=== PATIENT | female | born 1985 | race Caucasian/White ===

== ENCOUNTER 2018-10-30 17:38 | Outpatient (CLI) | payer MEDICAID ==
[~2018-10-30] VITALS: Ht 172.7 cm; Wt 114.7 kg
[~2018-10-30 17:38] MED LIST: FOLI0.4T2 PO; PREN1TAB13 PO
[2018-10-30 19:09] VITALS: Ht 172.7 cm; Wt 114.7 kg
--- NOTE | 2018-10-31 00:56 | PN ---
Triage Information Date/Time 10/31/18 Reason for visit: NST BPP EFW Weeks of Gestation 38w /Para Diabetes: gestational Diabetes management: diet controlled Hypertention: none Objective Heart Rate: 150's Heart Rate Comments CAT I Contractions: None Exam random BS 75 Results/Medications Results 24 hrs Laboratory Tests Test 10/30/18 21:01 Bedside Glucose 75 Imaging Results BPp 11/13 CASEY 19.2 EFW 3288gm Disposition: Discharge Assessment/Plan A IUP38w A1DM P RTH in 3days for antepartum test for GDM or RTH prn with routine labor instructions JASMEET ALVARADO MD Oct 31, 2018 00:56
--- NOTE | 2018-10-31 03:52 | TRIAGE ---
OB Triage Datetime Report Generated by CPN: 10/31/2018 03:52 Datetime: 10/30/2018 22:40 Labor Evaluation Frequency: 0 Monitor Mode: External Pattern: Normal: <= 5 Contractions in 10 Minutes Heart Rate FHR Baseline Rate: 135 Monitor Mode: External US Variability: Moderate 6-25 bpm Accelerations: 15X15 Decelerations: None Category: Category I Datetime: 10/30/2018 22:15 Monitor Mode: External Monitor Mode: External US Datetime: 10/30/2018 22:00 Labor Evaluation Frequency: 0 Monitor Mode: External Pattern: Normal: <= 5 Contractions in 10 Minutes Monitor Mode: External US Comments: INDETERMINATE FHR BASELINE Datetime: 10/30/2018 21:00 Labor Evaluation Frequency: 0 Monitor Mode: External Pattern: Normal: <= 5 Contractions in 10 Minutes Heart Rate FHR Baseline Rate: 150 Monitor Mode: External US Variability: Moderate 6-25 bpm Accelerations: 15X15 Decelerations: None Comments: LOSS OF CONTACT DUE TO LARGE BMI Datetime: 10/30/2018 20:11 Maternal Assessment Level of Consciousness: Keenly Alert, Responsive Respiratory Effort: Unlabored; Regular Rhythm; Equal Expansion Nausea/Vomiting: Denies Monitor Mode: External Monitor Mode: External US Pain Assessment Pain Scale: 0 Pain Presence: None/Denies Pain Type: N/A Datetime: 10/30/2018 20:00 Labor Evaluation Frequency: 0 Monitor Mode: External Pattern: Normal: <= 5 Contractions in 10 Minutes Heart Rate FHR Baseline Rate: 145 Monitor Mode: External US Variability: Moderate 6-25 bpm Accelerations: 15X15 Decelerations: None Comments: PT OFF MONITOR WHILE US BEING PERFORMED AND PT UP TO THE BATHROOM Datetime: 10/30/2018 19:52 Maternal Assessment Level of Consciousness: Keenly Alert, Responsive Headache: Denies Blurred Vision: No Respiratory Effort: Unlabored; Regular Rhythm; Equal Expansion Nausea/Vomiting: Denies RUQ Epigastric Pain: Denies Monitor Mode: External Monitor Mode: External US Pain Assessment Pain Scale: 0 Pain Presence: None/Denies Pain Type: N/A Datetime: 10/30/2018 19:26 Stage of : OB Triage Assessment Type: Triage Maternal Assessment Level of Consciousness: Keenly Alert, Responsive DTR's/Clonus: DTRs 2+; No Clonus Headache: Denies Blurred Vision: No Respiratory Effort: Unlabored; Regular Rhythm; Equal Expansion Breath Sounds, Left: Clear and Equal Breath Sounds, Right: Clear and Equal Nausea/Vomiting: Denies RUQ Epigastric Pain: Denies Lower Extremities Edema: None Upper Extremities Edema: None Facial Edema: None Temperature Route: Oral Fall Risk Assessment History of Falling: (0) No Secondary Diagnosis: (0) No Ambulatory Aid: (0) Bedrest/Nurse Assist IV Therapy: (0) No Gait: (0) Normal/Bedrest/Immobile Mental Status: (0) Oriented to Own Ability Fall Score: 0 Fall Risk Score Definition: No Risk: No action required Pain Assessment Pain Scale: 0 Pain Presence: None/Denies Pain Goal: 2 Datetime: 10/30/2018 19:25 Time of Arrival: 10/30/2018 18:36 EGA: 38.0 Arrived By: Ambulatory Arrived From: Office Chief Complaint: BREANNA DE LEÓN EFW Movement: Present Contractions: Denies/Absent Rupture of Membranes: Denies Vaginal Bleeding: None Vaginal Discharge: Denies Recent Sexual Intercouse: Denies Abdominal Trauma: Not Applicable Patient Complaints: None Time Provider Notified: 10/30/2018 22:04 Provider Notified: CHRISTIANO Initial Plan: US FOR BREANNA DE LEÓN, CHAYO
== END 2018-10-30 22:52 | disposition home or self-care (01) ==
LOC: L-D 17:38 → OBT 17:38 → L-D 18:36 → OBT 22:52
PROVIDERS: ATTEND Obstetrics & Gynecology
DX: O24.410 Gestational diabetes mellitus in pregnancy, diet controlled (principal); Z3A.38 38 weeks gestation of pregnancy
CPT/HCPCS: 76815; 76818; 82962; Z7500; G0463

== ENCOUNTER 2018-11-06 05:43 | Inpatient (IN) | payer MEDICAID ==
[~2018-11-06] VITALS: Ht 172.7 cm; Wt 114.3 kg
[2018-11-06 05:59] VITALS: BP 127/90; PULSE 68; RESP 18; Ht 172.7 cm; Wt 114.3 kg
--- NOTE | 2018-11-06 08:47 | TRIAGE ---
OB Triage Datetime Report Generated by CPN: 11/06/2018 08:46 Datetime: 11/06/2018 07:00 Labor Evaluation Frequency: x2 Monitor Mode: External Duration (sec)2399: 60-180 Quality: Mild Pattern: Normal: <= 5 Contractions in 10 Minutes Resting Tone [place]: Relaxed Heart Rate FHR Baseline Rate: 135 Monitor Mode: External US Variability: Moderate 6-25 bpm Accelerations: 15X15 Decelerations: None Category: Category I Datetime: 11/06/2018 06:30 Labor Evaluation Frequency: x3 Monitor Mode: External Duration (sec)2399: 60-90 Quality: Mild Pattern: Normal: <= 5 Contractions in 10 Minutes Resting Tone [place]: Relaxed Heart Rate FHR Baseline Rate: 145 Monitor Mode: External US Variability: Moderate 6-25 bpm Accelerations: 15X15 Decelerations: Variable Category: Category II Vaginal Exam Dilatation (cms): 1.0 Effacement (%): 50 Station: -4 Exam By: Catherine Torres RN Membrane Status: Intact Vaginal Bleeding: light pink blood noted on glove Cervix, Consistency: Soft Cervix, Position: Posterior Presentation 'A': Unable to Assess Datetime: 11/06/2018 06:19 Time of Arrival: 11/06/2018 05:30 EGA: 39.0 Arrived By: Wheelchair Arrived From: Home Chief Complaint: UC's Movement: Present Contractions: Irregular Contractions: Every 10 min Rupture of Membranes: Denies Vaginal Bleeding: None Vaginal Discharge: Denies Recent Sexual Intercouse: Denies Patient Complaints: Contractions; Other Additional Patient Complaints: Bloody mucus Time Provider Notified: 11/06/2018 08:15 Provider Notified: dr salazar Initial Plan: CEFM, VE Datetime: 10/30/2018 19:26 Fall Risk Assessment Fall Score: 0 Fall Risk Score Definition: No Risk: No action required Datetime: 10/30/2018 19:25 EGA: 38.0
[2018-11-06] MEDS ORDERED: OXYTOCIN 30 UNITS/LR 500 ML IV PRN (10:30)
[2018-11-06] MEDS ORDERED: IBUPROFEN 600 MG TAB PO PRN (10:30)
[2018-11-06] MEDS ORDERED: MISOPROSTOL 200 MCG TAB PR PRN (10:30)
[2018-11-06] MEDS ORDERED: LIDOCAINE 1% (MPF) 30 ML INJ INJ PRN (10:30)
[2018-11-06] MEDS ORDERED: AMPICILLIN 2 GM/NS (PMX) 100 ML IV ONE (10:30)
[2018-11-06] MEDS ORDERED: CARBOPROST 250 MCG INJ IM PRN (10:30)
[2018-11-06] MEDS ORDERED: BUTORPHANOL 2 MG INJ IV PRN (10:30)
[2018-11-06] MEDS ORDERED: OXYTOCIN 30 UNITS/LR 500 ML IV SCH ×2 (10:30)
[2018-11-06] MEDS ORDERED: METHYLERGONOVINE 0.2 MG INJ IM PRN (10:30)
[2018-11-06] MEDS: LACTATED RINGER'S 1,000 ML IV SCH ×3 (11:00→17:11)
[2018-11-06] MEDS ORDERED: MISOPROSTOL 50 MCG CAPSULE PO ONE (13:00)
[2018-11-06] MEDS ORDERED: DEXTROSE 5%-LR 1,000 ML IV PRN (15:00)
[2018-11-06] MEDS: AMPICILLIN 1 GM/NS (PMX) 50 ML IV SCH ×3 (17:11→21:30)
[2018-11-06] MEDS ORDERED: LACTATED RINGER'S 1,000 ML IV PRN (20:04)
[2018-11-06] MEDS ORDERED: MINERAL OIL LIGHT 10 ML VIAL TOP PRN (20:30)
[2018-11-06] MEDS: MISOPROSTOL 50 MCG CAPSULE PO SCH ×2 (21:00→21:04)
[2018-11-07] MEDS: AMPICILLIN 1 GM/NS (PMX) 50 ML IV SCH (01:09)
[2018-11-07] MEDS: LACTATED RINGER'S 1,000 ML IV SCH ×3 (03:22→16:00)
--- NOTE | 2018-11-07 04:29 | HP ---
Date/Time of Note Date/Time of Note DATE: 11/07/18 TIME: 04:19 OB - History Hx of Present Free Text/Dictation 33 y.o [id number] at triage with c/p UC'a and bloody mucus discharge ,intact membrane. Initial VE /-3 CAT I tracing with uc 10min apart. Known to have GDM diet controlled EFW 3651gm CASEY 11.9 GBS positive admit for IOL/Augmentation, Chief Complaint: uc's Estimated Due Date: Nov 11, 2018 : 1 Para: 0 Spontaneous : 0 Therapeutic : 0 Care: Other Ultrasounds: Normal mid trimester US Obstetrical Complications: Gestational Diabetes Medical Complications: None Past Family/Social History * Past Medical, Surgical, Family and Obstetric Histories reviewed from chart. Blood Type: O+ Rubella: immune RPR/VDRL: Negative GBS Status: Positive HBsAG: Negative OB Admission Exam Vital Signs Vital Signs Vital Signs Date Temp Pulse Resp B/P (MAP) Pulse Ox O2 O2 Flow FiO2 Time Delivery Rate 11/06/18 98.5 68 18 127/90 Room Air 05:59 (102) Physical Exam HEENT: WNL Heart: Rhythm Normal Lungs: Clear, Equal Abdomen: WNL Extremities: Normal Reflexes: Normal Effacement: 50% Station: -3 Membranes: Intact Amniotic Fluid: Unevaluable Heart Rate: 130's Accelerations: Accelerations Present Decelerations: No Decelerations Varibility: Moderate Contractions on Admission: >10 Minutes Apart Intensity: Mild Last 72 hourBlood Glucose Bedside Glucose - 72 Hours Test 11/06/18 14:19 11/06/18 19:43 11/07/18 00:29 Bedside Glucose 72 mg/dL (70-220) 115 mg/dL (70-220) 75 mg/dL (70-220) Last 72 hours Lab Results CBC & BMP 11/06/18 10:05 OB Assessment/Plan Other Assessment: A IUP 39w2d A1DM in early labor Plan: Other (augmentation) Induction Method: per Misoprostol Protocol JASMEET ALVARADO MD Nov 07, 2018 04:29
[2018-11-07] MEDS ORDERED: OXYTOCIN 30 UNITS/LR 500 ML IV SCH (04:30)
--- NOTE | 2018-11-07 04:35 | LDN ---
Date/Time of Note Date/Time of Note DATE: 11/07/18 TIME: 04:33 Delivery Summary of normal male Weeks of Gestation 39w3d Placenta Delivered: Spontaneously, Intact & Complete Meconium: none Episiotomy: Yes Indication for episiotomy expected laceration Perineal laceration: 0 Laceration repair: 00ch gut 000ch gut vaginal Anesthesia type: Local Estimated blood loss: 300 Sponge & Needle done & correct: Yes All needle counts correct: Yes Any foreign bodies felt in the: No Delivery Information Sex Sex: male Apgars 1 Minute: 8 5 Minute: 9 Suctioning Nose & mouth suctioned at jackie: Yes Delee suction performed: Yes Umbilical Cord Umbilical cord with: 3 Vessels Cord presentations: no nuchal cord Cord Blood was obtained: Yes Mother & Baby Disposition Disposition Mom & Baby to Maternity; Good: Yes Mom transferred to: Other Baby to NICU: No () JASMEET ALVARADO MD Nov 07, 2018 04:35
[2018-11-07 06:00] VITALS: BP 115/73; PULSE 90; RESP 18
[2018-11-07] MEDS ORDERED: LANOLIN HPA 1 PKT TOP PRN (06:00)
[2018-11-07] MEDS ORDERED: CARBOPROST 250 MCG INJ IM PRN (06:00)
[2018-11-07] MEDS: IBUPROFEN 600 MG TAB PO SCH ×3 (06:00→17:50)
[2018-11-07] MEDS ORDERED: OXYTOCIN 30 UNITS/LR 500 ML IV PRN (06:00)
[2018-11-07] MEDS ORDERED: BENZOCAINE 20% 56 ML SPRAY TOP PRN (06:00)
[2018-11-07] MEDS ORDERED: OXYCODONE/ASPIRIN (4.88/325) TAB PO PRN ×2 (06:00)
[2018-11-07] MEDS ORDERED: MISOPROSTOL 200 MCG TAB PR PRN (06:00)
[2018-11-07] MEDS ORDERED: METHYLERGONOVINE 0.2 MG INJ IM PRN (06:00)
[2018-11-07] MEDS ORDERED: ZOLPIDEM 5 MG TAB PO PRN (06:00)
[2018-11-07] MEDS ORDERED: WITCH HAZEL/GLYCERIN PAD PR PRN (06:00)
[2018-11-07 08:00] VITALS: BP 111/60; PULSE 87; RESP 18
[2018-11-07] MEDS: SENNA/DOCUSATE NA (8.6MG/50MG) TAB PO SCH ×2 (09:31→21:37)
[2018-11-07 16:26] VITALS: BP 111/60; PULSE 79; RESP 18
[2018-11-07 21:15] VITALS: BP 121/72; PULSE 73; RESP 17
[2018-11-08] MEDS: IBUPROFEN 600 MG TAB PO SCH ×5 (00:26→23:37)
[2018-11-08 04:00] VITALS: BP 111/71; PULSE 71; RESP 17
[2018-11-08 08:00] VITALS: BP 115/64; PULSE 73; RESP 18
[2018-11-08] MEDS: LACTATED RINGER'S 1,000 ML IV SCH ×4 (08:00→23:37)
[2018-11-08] MEDS: SENNA/DOCUSATE NA (8.6MG/50MG) TAB PO SCH ×2 (08:23→21:45)
[2018-11-08 16:49] VITALS: BP 114/69; PULSE 75; RESP 18
--- NOTE | 2018-11-08 19:27 | PN ---
Date/Time of Note Date/Time of Note DATE: 11/08/18 TIME: 19:26 OB Subjective Subjective Subjective PPD# 1 Patient is doing well. She denies nausea, vomiting, shortness of breath, chest pain, headache. She has been ambulating without difficulty, tolerating regular diet. Pain is well controlled on current medications OB Objective Objective Objective Vital Signs Date Temp Pulse Resp B/P (MAP) Pulse Ox O2 O2 Flow FiO2 Time Delivery Rate 11/08/18 97.4 75 18 114/69 16:49 (84) 11/08/18 Room Air 08:00 General: AAO X 3, comfortable, NAD, appropriate mood and affect. ABD: +BS. Soft, non-tender. Uterus 2 cm below umbilicus Flank: No CVA tenderness (B/L) LE: Mild edema. No clubbing, cyanosis, thigh or calf tenderness (B/L). Homans 'sign is negative OB Assessment/Plan Other plan: 33-year-old -0-0-1 s/p normal vaginal delivery at 39 weeks and 2 days. PPD#1 - AF, VSS - Contraception methods with R/B/A/FR discussed - Continue care - Post delivery hemoglobin is 9.2, recommend ferrous sulfate 325 mg twice daily and continue vitamin - Discharge home tomorrow - Rx and instruction given - Follow up in 2 and 6 weeks at clinic YUMIKO SALGUERO Nov 08, 2018 19:27
--- NOTE | 2018-11-08 19:28 | DS ---
Date/Time of Note Date/Time of Note DATE: 11/08/18 TIME: 19:28 Obstetrical Discharge Record Final Diagnosis Final Diagnosis: Term delivered Other Final Diagnosis 33-year-old -0-0-1 s/p normal vaginal delivery at 39 weeks and 2 days. PPD#1 post course was unremarkable. - AF, VSS - Contraception methods with R/B/A/FR discussed - Continue care - Post delivery hemoglobin is 9.2, recommend ferrous sulfate 325 mg twice daily and continue vitamin - Discharge home tomorrow - Rx and instruction given - Follow up in 2 and 6 weeks at clinic Vaginal Delivery Obstetrical Delivery: Spontaneous Condition on Discharge Physical Assessment Voiding: Yes Bowel Movement: Yes Breast: Soft, non-tender Fundus: Firm Calf Tenderness: No Patient Condition: Stable YUMIKO SALGUERO Nov 08, 2018 19:28
[2018-11-08 20:45] VITALS: BP 115/59; PULSE 71; RESP 17
[2018-11-09 04:00] VITALS: BP 121/75; PULSE 83; RESP 18
[2018-11-09] MEDS: IBUPROFEN 600 MG TAB PO SCH ×2 (05:32→12:00)
[2018-11-09 08:00] VITALS: BP 120/75; PULSE 77; RESP 18
[2018-11-09] MEDS: SENNA/DOCUSATE NA (8.6MG/50MG) TAB PO SCH (09:00)
[2018-11-09] MEDS ORDERED: DIPHTH/TET/ACEL PERTUSS (ADULT) 0.5 ML VIAL IM* ONE (09:00)
[2018-11-09 16:35] VITALS: BP 123/73; PULSE 88; RESP 18
--- NOTE | 2018-11-10 17:41 | DELSUM ---
Delivery Summary A-C Datetime Report Generated by CPN: 11/10/2018 17:41 DELIVERY PERSONNEL Skin Piler: Tersigni, Gladis MATERNAL INFORMATION Delivery Anesthesia: Local Medications in Delivery: LR with 30 units of pitocin Delivery QBL (ml): 300 Placenta Cultured: No Maternal Complications: Other Other Maternal Complications: GDM LABOR SUMMARY EDC: 11/11/2018 00:00 No. Babies in Womb: 1 Attempted: No Labor Anesthesia: None LABOR INFORMATION Reason for Induction: Maternal Diabetes Onset of Labor: 11/06/2018 20:51 Complete Dilatation: 11/07/2018 03:30 Cervical Ripening Agents: Cytotec @ 50 mcg PO dose #3 Group B Beta Strep: Positive Antibiotics # of Doses: 4 Antibiotics Time of Last Dose: 11/07/2018 01:09 Steroids Given: None Reason Steroids Not Administered: Not Applicable MEMBRANES Membranes Rupture Method: Spontaneous Rupture of Membranes: 11/07/2018 03:28 Length of Rupture (hr): 0.18 Amniotic Fluid Color: Clear Amniotic Fluid Amount: Moderate Amniotic Fluid Odor: None STAGES OF LABOR Stage 1 hr: 6 Stage 1 min: 39 Stage 2 hr: 0 Stage 2 min: 9 Stage 3 hr: 0 Stage 3 min: 4 Total Time in Labor hr: 6 Total Time in Labor min: 52 VAGINAL DELIVERY Episiotomy: Median Laceration Extension: First Degree Laceration Type: Vaginal Laceration Repair: Yes Initial Vag Sponge Count: 10+10 Final Vag Sponge Count: 20 Initial Vag Sharps Count: 1+2 Final Vag Sharps Count: 3 Sponge Count Correct: Yes; Vaginal Sweep Performed Sharps Count Correct: Yes BABY A INFORMATION Infant Delivery Date/Time: 11/07/2018 03:39 Method of Delivery: Vaginal Born in Route : No : N/A Forceps: N/A Vacuum Extraction: N/A Shoulder Dystocia : N/A SHOULDER DYSTOCIA BABY A Delivery Date/Time: 11/07/2018 03:39 PRESENTATION/POSITION BABY A Presentation: Cephalic Cephalic Presentation: Vertex Vertex Position: Left Occipital Anterior Breech Presentation: N/A PLACENTA INFORMATION BABY A Placenta Delivery Time : 11/07/2018 03:43 Placenta Method of Delivery: Spontaneous Placenta Status: Delivered SCORES BABY A Heart Rate 1 min: >100 bpm Resp Effort 1 min: Good Cry Reflex Irritability 1 min: Cough/Sneeze/Pulls Away Muscle Tone 1 min: Active Motion Color 1 min: Body [place], Extremit Blue Resuscitation Effort 1 min: Tactile Stimulation SCORE 1 MIN: 9 Heart Rate 5 min: >100 bpm Resp Effort 5 min: Good Cry Reflex Irritability 5 min: Cough/Sneeze/Pulls Away Muscle Tone 5 min: Active Motion Color 5 min: Body [place], Extremit Blue Resuscitation Effort 5 min: Tactile Stimulation SCORE 5 MIN: 9 INFORMATION BABY A Gestational Age at Delivery: 39.3 Gestational Status: Full Term- 39- 40.6 Weeks Infant Outcome : Liveborn, with signs of life Condition : Stable Sex: Male IDENTIFICATION/MEDS BABY A ID Band Number: [id number] ID Band Location: Right Leg; Left Arm Sensor Applied: Yes Sensor Number: [id number] Sensor Location : Cord Clamp Vitamin K Given : Not Given Erythromycin Given: Not Given WEIGHT/LENGTH BABY A Infant Birthweight (gm): 3680 Weight (lb): 8 Weight (oz): 2 Length (in): 19.50 Length (cm): 49.53 CORD INFORMATION BABY A No. Cord Vessels: 3 Nuchal Cord : N/A Cord Blood Taken: Yes Infant Suction: Mouth; Nose ASSESSMENT BABY A Complications: None Physical Findings at Delivery: Molding of the Head; Within Normal Limits Respirations: Appears Normal Web Feeder/ALS Called : No Care By: Cameron GARCIA Transferred To: Remains with Mother
== END 2018-11-09 16:15 | disposition home or self-care (01) | DRG 807 ==
LOC: L-D 05:43 → OBT 05:43 → L-D 08:46 → PP1 11-07 05:40
PROVIDERS: ADMIT Obstetrics & Gynecology; ATTEND Obstetrics & Gynecology
PROC: 10E0XZZ Delivery of Products of Conception, External Approach (ICD-10-PCS; principal; 2018-11-07)
PROC: 0W8NXZZ Division of Female Perineum, External Approach (ICD-10-PCS; 2018-11-07)
DX: O24.420 Gestational diabetes mellitus in childbirth, diet controlled (principal); Z37.0 Single live birth; O99.824 Streptococcus B carrier state complicating childbirth; Z3A.39 39 weeks gestation of pregnancy
CPT/HCPCS: 76815; 76818; 82947; 82962; 85025; 85610; 85730; 86592; 86850; 86900; 86901; 87340; G0463; J0290; J0595; J2590; J7120